=== PATIENT | male | born 1965 | race Caucasian/White ===

== ENCOUNTER 2018-01-28 22:55 | Inpatient (IN) | payer BC, MEDICARE, OTHER ==
[2018-01-29] MEDS ORDERED: LORazepam 2 MG/ML INJ ONE (01:14)
[2018-01-29 01:20] LABS: Glucose,Whole Blood 113 mg/dL (75-99)
[2018-01-29] MEDS ORDERED: levETIRAcetam IV 1,000 MG in SALINE 1 100ML.BAG IVPB STA (01:21)
[2018-01-29 01:25] VITALS: BP 164/102; PULSE 84; RESP 18; TEMP 97.2
[2018-01-29] MEDS ORDERED: PIPERACILLIN-TAZOBACTAM 3.375 GM in DEXTROSE/WATER 1 50ML.BAG IVPB SCH (01:30)
[2018-01-29] MEDS ORDERED: PROPOFOL 100 ML IV ONE ×2 (01:57→03:22)
[2018-01-29] MEDS ORDERED: SUCCINYLCHOLINE CHLORIDE 100 MG/5 ML SYR IV ONE (02:00)
[2018-01-29] MEDS ORDERED: PROPOFOL 10 MG/ML 20 ML VIAL IV ONE (02:00)
[2018-01-29] MEDS ORDERED: LORazepam 2 MG/ML INJ IV PRN (02:39)
--- NOTE | 2018-01-29 02:48 | XR ---
EXAMINATION TYPE: XR chest 1V portable History intubation. Comparison 08/09/2013. Technique single view. FINDINGS: Endotracheal tube appears to be in good position. There is nasogastric tube appears to be well below the diaphragm. There is patchy atelectasis in both mid and lower lung blanco. There is no definite he art failure. Trachea is midline. There is poor inspiration. CONCLUSION: There is new infiltrate and atelectasis at the lung bases compared to old exam. No gross heart failur e. Endotracheal tube appears in good position.
[2018-01-29 02:54] LABS: Basophils # (A) 0.1 k/uL (0-0.2); Basophils % (A) 1 %; Eosinophils # (A) 0.3 k/uL (0-0.7); Eosinophils % (A) 3 %; HCT 33.3 % (39.0-53.0); HGB 11.3 gm/dL (13.0-17.5); Lymphocytes # (A) 2.6 k/uL (1.0-4.8); Lymphocytes % (A) 21 %; MCH 31.1 pg (25.0-35.0); MCV 91.3 fL (80.0-100.0); Mean Platelet Volume 8.4; Monocytes # (A) 0.7 k/uL (0-1.0); Monocytes % (A) 5 %; Neutrophils # (A) 8.5 k/uL (1.3-7.7); Neutrophils % (A) 69 %; Platelet Count 340 k/uL (150-450); RBC 3.65 m/uL (4.30-5.90); RDW 12.7 % (11.5-15.5); WBC 12.4 k/uL (3.8-10.6)
[2018-01-29 02:57] LABS: ABG Base Excess 2.4 mmol/L; ABG HCO3 29 mmol/L (21-25); ABG PCO2 63 mmHg (35-45); ABG PH 7.27 (7.35-7.45); ABG PO2 149 mmHg (83-108); ABG TCO2 31 mmol/L (19-24)
[2018-01-29 03:10] LABS: Calcium 9.2 mg/dL (8.4-10.2); Magnesium 1.6 mg/dL (1.6-2.3); Phosphorus 6.1 mg/dL (2.5-4.5); Potassium 4.9 mmol/L (3.5-5.1); Total Bilirubin 0.3 mg/dL (0.2-1.3); Total Protein 6.8 g/dL (6.3-8.2)
[2018-01-29] MEDS ORDERED: CISATRACURIUM 2 MG/ML 5 ML VIAL IV ONE (03:20)
[2018-01-29] MEDS ORDERED: levETIRAcetam IV 500 MG in SODIUM CHLORIDE 0.9% 100 ML IVPB SCH ×2 (08:00→10:00)
--- NOTE | 2018-02-02 15:44 | P.HPIM ---
History of Present Illness H&P Date: 01/29/18 Chief Complaint: Seizures and visual hallucination This is a 53-year-old gentleman well-known to my practice, Dr. Valentina Sherman. 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 he was recently diagnosed of delusional disorder with schizophrenia diagnosed in the past 3 years, reports requiring prolonged hospitalization aren't [facility]. Recently admitted to [facility], diagnosed to have refractory insomnia, and possible benzodiazepine withdrawal. Patient was not sleeping after he ran out of his clonazepam 3 days prior to admission. Patient has had chronic refractory insomnia, and requires multiple modalities off combined treatments include Seroquel 200 mg twice a day , SSRI, and clonazepam 4 milligram at at bedtime. He is not on any opiates and denies any history off social drug use. He also was being treated with aspiration pneumonia During his last admission at [facility]. He was discharged to home,, we have decreased his clonazepam to 2 mg at bedtime, and added Remeron 30 mg at bedtime and increase his Seroquel to 300 mg at night and 100 mg in the morning. came back in 1 week to the emergency room with another seizure episode and this time he was having auditory and basal hallucinations, and tremors and seizures. He was transferred to [facility] upon my recommendation with the emergency room physician as this could be a florid breakdown of his psychotic episode again, along with neurology consultation and psychiatric evaluation. He was transferred to selective specialty however he had status epilepticus while in the selective unit, and was transferred to ICU for recommended prophylactic intubation prior to transfer to [facility], I have spoken to [facility] neurology ICU unit and has accepted the transfer. , Dr. Sherman, Dr. Briscoe was consulted, patient was given phenobarbital drip, and IV Keppra 500 mg every 8 hours Review of Systems Unable patient was not seen, reviewed from from emergency room physician on [facility] prior to transfer to [facility] Past Medical History Past Medical History: COPD, CVA/TIA, Diabetes Mellitus, Fibromyalgia, GERD/ Reflux, Hyperlipidemia, Hypertension, Liver Disease, Osteoarthritis (OA), Rheumatoid Arthritis (RA), Sleep Apnea/CPAP/BIPAP Additional Past Medical History / Comment(s): Diabetes pedis type II, hypertension, hyperlipidemia, CVA, fibromyalgia, chronic tobacco use and dependence, COPD, chronic pain syndrome, seizure with status epilepticus, osteoporosis with vertebral fracture from T3 to T7 and T11, drug use and dependence. History of Any Multi-Drug Resistant Organisms: None Reported Past Surgical History: Orthopedic Surgery Additional Past Surgical History / Comment(s): rt rotator cuff x 2 Past Anesthesia/Blood Transfusion Reactions: No Reported Reaction Past Psychological History: Depression Smoking Status: Former smoker Past Alcohol Use History: Daily Past Drug Use History: Cocaine, Marijuana - Past Family History Father Family Medical History: CVA/TIA, Diabetes Mellitus, Hypertension Mother Family Medical History: Diabetes Mellitus Brother(s) Family Medical History: No Reported History Sister(s) Family Medical History: No Reported History Medications and Allergies Home Medications Medication Instructions Recorded Confirmed Type Acetaminophen Tab [Tylenol] 650 mg PO Q6H PRN 08/24/15 08/24/15 History Heparin Sodium,Porcine [Heparin] 5,000 unit SQ Q8HR 08/24/15 08/24/15 History Aspirin 81 mg PO DAILY #14 chew 09/02/15 Rx Atorvastatin [Lipitor] 20 mg PO DAILY #14 tab 09/02/15 Rx Escitalopram [Lexapro] 5 mg PO DAILY #14 tab 09/02/15 Rx Famotidine [Pepcid] 20 mg PO BID #28 tab 09/02/15 Rx HYDROcodone/APAP 5-325MG [[place] 1 each PO TID PRN #7 tab 09/02/15 Rx 5-325] LORazepam [Ativan] 0.5 mg PO TID #21 tab 09/02/15 Rx Metoprolol Tartrate [Lopressor] 50 mg PO BID #28 tab 09/02/15 Rx Naproxen Sodium [Anaprox] 550 mg PO BID #28 tab 09/02/15 Rx Paliperidone [Invega] 6 mg PO DAILY #14 tab.er.24 09/02/15 Rx Phenytoin Sodium Extended 100 mg PO BID #28 cap 09/02/15 Rx [Dilantin] QUEtiapine [SEROquel] 400 mg PO DAILY #14 tab 09/02/15 Rx cloNIDine HCL [Catapres] 0.1 mg PO BID #28 tab 09/02/15 Rx hydrOXYzine PAMOATE [Vistaril] 50 mg PO HS #14 cap 09/02/15 Rx levETIRAcetam [Keppra] 1,000 mg PO Q12HR #28 tab 09/02/15 Rx rOPINIRole HCL [Requip] 0.25 mg PO HS #14 tab 09/02/15 Rx Allergies Allergy/AdvReac Type Severity Reaction Status Date / Time No Known Allergies Allergy Verified 08/24/15 14:38 Physical Exam Vitals: Unable. Patient was emergently transferred out to [facility] neurology ICU unit Results CBC & Chem 7: 01/29/18 02:28 01/29/18 02:28 Labs: Laboratory Results WBC 12.4 k/uL (3.8-10.6) H 01/29/18 02:28 RBC 3.65 m/uL (4.30-5.90) L 01/29/18 02:28 Hgb 11.3 gm/dL (13.0-17.5) L 01/29/18 02:28 Hct 33.3 % (39.0-53.0) L 01/29/18 02:28 MCV 91.3 fL (80.0-100.0) 01/29/18 02:28 MCH 31.1 pg (25.0-35.0) 01/29/18 02:28 MCHC 34.0 g/dL (31.0-37.0) 01/29/18 02:28 RDW 12.7 % (11.5-15.5) 01/29/18 02:28 Plt Count 340 k/uL (150-450) 01/29/18 02:28 Neutrophils % 69 % 01/29/18 02:28 Lymphocytes % 21 % 01/29/18 02:28 Monocytes % 5 % 01/29/18 02:28 Eosinophils % 3 % 01/29/18 02:28 Basophils % 1 % 01/29/18 02:28 Neutrophils # 8.5 k/uL (1.3-7.7) H 01/29/18 02:28 Lymphocytes # 2.6 k/uL (1.0-4.8) 01/29/18 02:28 Monocytes # 0.7 k/uL (0-1.0) 01/29/18 02:28 Eosinophils # 0.3 k/uL (0-0.7) 01/29/18 02:28 Basophils # 0.1 k/uL (0-0.2) 01/29/18 02:28 [facility] 01/29/18 02:54 ABG pH 7.27 (7.35-7.45) L 01/29/18 02:54 ABG pCO2 63 mmHg (35-45) H 01/29/18 02:54 ABG pO2 149 mmHg (83-108) H 01/29/18 02:54 ABG HCO3 29 mmol/L (21-25) H 01/29/18 02:54 ABG Total CO2 31 mmol/L (19-24) H 01/29/18 02:54 ABG O2 Saturation 97.0 % (94-97) 01/29/18 02:54 ABG Base Excess 2.4 mmol/L 01/29/18 02:54 Brennan Test Yes 01/29/18 02:54 FiO2 50 % 01/29/18 02:54 Sodium 145 mmol/L (137-145) 01/29/18 02:28 Potassium 4.9 mmol/L (3.5-5.1) 01/29/18 02:28 Chloride 105 mmol/L (98-107) 01/29/18 02:28 Carbon Dioxide 28 mmol/L (22-30) 01/29/18 02:28 Anion Gap 12 mmol/L 01/29/18 02:28 BUN 32 mg/dL (9-20) H 01/29/18 02:28 Creatinine 1.20 mg/dL (0.66-1.25) 01/29/18 02:28 Est GFR (CKD-EPI)AfAm 81 (>60 ml/min/1.73 sqM) 01/29/18 02:28 Est GFR (CKD-EPI)NonAf 70 (>60 ml/min/1.73 sqM) 01/29/18 02:28 Glucose 102 mg/dL (74-99) H 01/29/18 02:28 POC Glucose (mg/dL) 113 mg/dL (75-99) H 01/29/18 01:18 POC Glu Irrigator Valve Pipe ID Gita Marsh 01/29/18 01:18 Calcium 9.2 mg/dL (8.4-10.2) 01/29/18 02:28 Phosphorus 6.1 mg/dL (2.5-4.5) H 01/29/18 02:28 Magnesium 1.6 mg/dL (1.6-2.3) 01/29/18 02:28 Total Bilirubin 0.3 mg/dL (0.2-1.3) 01/29/18 02:28 AST 95 U/L (17-59) H 01/29/18 02:28 ALT 41 U/L (21-72) 01/29/18 02:28 Alkaline Phosphatase 55 U/L (38-126) 01/29/18 02:28 Total Protein 6.8 g/dL (6.3-8.2) 01/29/18 02:28 Albumin 4.0 g/dL (3.5-5.0) 01/29/18 02:28 Levetiracetam 33.3 ug/mL (3.0-60.0) 01/29/18 02:28 Assessment and Plan Plan: 1. Status epilepticus, accompanied by refractory insomnia now with acute psychosis and visual hallucinations, uncontrolled despite Keppra 1000 mg twice a day, Dilantin 100 mg twice a day and Ativan 0.5 mg 3 times a day times a day, patient was started on phenobarbital IV drip as recommended by neurology, and neurology has requested transfer to neuro ICU in [facility], 2. Schizoaffective disorder with acute psychosis, history off bipolar disorder on maintenance Seroquel, 300 mg at bedtime and 100 mg morning , Seroquel and Lexapro 3. Chronic pain, not on opiates, patient was followed for the past few years by pain specialist, however unable to get his visits done secondary to expense 4. Hypertension and hypertensive cardiovascular disease. Continue metoprolol 50 mg orally twice every day. 5. Hyperlipidemia. Continue Lipitor 40 mg orally once every day. 6. History of CVA. Continue aspirin 81 mg once every day, Lipitor 40 mg orally once every day for secondary prevention. 7. Chronic tobacco use and dependence. 8. diabetes mellitus type 2. Stable. 9. GERD. Continue omeprazole 20 mg orally once every day. 10. Osteoporosis with vertebral fracture at T3 through T7 and T11. Patient may need to be started on probably as an outpatient. 11. Reported history of chronic fatigue syndrome. We will check iron studies as an outpatient. 12. Reported history of fibromyalgia. Compliance description drugs needs to be fully addressed, patient's determines compliance with the medications
== END 2018-01-29 05:20 | disposition short-term general hospital (02) | DRG 101 ==
LOC: 4MS4W 01-29 01:09
PROVIDERS: ADMIT Family Medicine; ATTEND Family Medicine
DX: G40.901 Epilepsy, unspecified, not intractable, with status epilepticus (principal); M80.08XA Age-related osteoporosis with current pathological fracture, vertebra(e), initial encounter for fracture; F25.9 Schizoaffective disorder, unspecified; I11.9 Hypertensive heart disease without heart failure; E11.9 Type 2 diabetes mellitus without complications; E78.5 Hyperlipidemia, unspecified; G47.00 Insomnia, unspecified; G47.30 Sleep apnea, unspecified; G89.4 Chronic pain syndrome; J44.9 Chronic obstructive pulmonary disease, unspecified; K21.9 Gastro-esophageal reflux disease without esophagitis; M13.0 Polyarthritis, unspecified; M79.7 Fibromyalgia; R53.82 Chronic fatigue, unspecified; F32.9 Major depressive disorder, single episode, unspecified; F17.200 Nicotine dependence, unspecified, uncomplicated; Z79.82 Long term (current) use of aspirin; Z79.899 Other long term (current) drug therapy; Z86.73 Personal history of transient ischemic attack (TIA), and cerebral infarction without residual deficits; Z82.49 Family history of ischemic heart disease and other diseases of the circulatory system
CPT/HCPCS: 36600; 71045; 80053; 80177; 82805; 83735; 84100; 85025; 94002

== ENCOUNTER 2019-02-17 14:10 | Emergency (ER) | payer MEDICARE ==
[2019-02-17 14:21] VITALS: BP 126/73; PULSE 86; RESP 16; TEMP 97.6
[2019-02-17] MEDS ORDERED: MORPHINE SULFATE 4 MG/ML SYRINGE IM STA (15:12)
[2019-02-17] MEDS ORDERED: KETOROLAC 60 MG/2 ML VIAL IM STA (15:12)
[2019-02-17] MEDS ORDERED: CYCLOBENZAPRINE 10MG STARTER 3 TAB BTL PO STA (15:13)
--- NOTE | 2019-02-17 15:58 | CT ---
EXAMINATION TYPE: CT lumbar spine wo con DATE OF EXAM: 02/17/2019 3:46 PM COMPARISON: None. HISTORY: Low back and leg pain with numbness CT DLP: 801.6 mGycm Automated exposure control for dose reduction was used. Unenhanced CT of the lumbar spine was performed. Bone and soft tissue window settings are submitted as well as coronal and sagittal reconstructions. There are 5 lumbar type vertebra identified. Lumbar spine shows slight grade 1 retrolisthesis of L5 o n S1. There is advanced disc space narrowing and endplate sclerosis at L5-S1 level. Posterior disc he rniation is seen at this level on sagittal images. Remainder of vertebral bodies and disc space heigh ts are maintained. Mild anterior spurring lower lumbar spine is seen. Axial images at the T12-L1 and L1-L2 levels are felt within normal limits. Axial images at L2-L3 level show mild broad disc bulge mildly effacing anterior thecal sac, bilateral neural foramina are patent. Mild facet degenerative changes bilaterally are seen. Axial images at L3-L4 level show mild/moderate broad disc bulge effacing the anterior thecal sac on a xial image 53 and causing mild bilateral anterior inferior neural foraminal narrowing. Axial images at L4-L5 level moderate broad disc bulge effacing anterior thecal sac. There is mild fac et degenerative changes bilaterally. There is mild to moderate bilaterally anterior inferior neural f oraminal narrowing, right greater than left. Axial images at L5-S1 level shows moderate broad-based disc bulge on axial image 74. There is spondyl olisthesis and moderate to severe bilateral neural foraminal narrowing. [id number] facet degene rative changes bilaterally are present. Mild calcified plaque of the aorta extends into branch vessels. Visualized liver is hypodense suggest ing diffuse fatty infiltration. IMPRESSION: Multilevel degenerative changes in lumbar spine most prominent in lower lumbar levels as detailed above.
--- NOTE | 2019-02-17 16:28 | ED ---
Lower Extremity Injury HPI - General Chief Complaint: Extremity Injury, Lower Stated Complaint: Back pain Time Seen by Provider: 02/17/19 14:36 Source: patient, RN notes reviewed, old records reviewed Mode of arrival: ambulatory Limitations: no limitations - History of Present Illness Initial Comments: This is a 54-year-old male who presents emergency Department today with complaints of lower back pain radiating down the leg. Patient reports that symptoms started 2-3 days ago. He said history of lumbar radiculopathy. Reports the pain is more severe today and it has ever been past. He denies any saddle anesthesias. Patient states she's had no fevers or chills chest pain shortness of breath. Patient states that he's had no significant trauma to the back. - Related Data Home Medications Medication Instructions Recorded Confirmed Acetaminophen Tab [Tylenol] 650 mg PO Q6H PRN 08/24/15 08/24/15 Heparin Sodium,Porcine [Heparin] 5,000 unit SQ Q8HR 08/24/15 08/24/15 Previous Rx's Medication Instructions Recorded Aspirin 81 mg PO DAILY #14 chew 09/02/15 Atorvastatin [Lipitor] 20 mg PO DAILY #14 tab 09/02/15 Escitalopram [Lexapro] 5 mg PO DAILY #14 tab 09/02/15 Famotidine [Pepcid] 20 mg PO BID #28 tab 09/02/15 HYDROcodone/APAP 5-325MG [[place] 1 each PO TID PRN #7 tab 09/02/15 5-325] LORazepam [Ativan] 0.5 mg PO TID #21 tab 09/02/15 Metoprolol Tartrate [Lopressor] 50 mg PO BID #28 tab 09/02/15 Naproxen Sodium [Anaprox] 550 mg PO BID #28 tab 09/02/15 Paliperidone [Invega] 6 mg PO DAILY #14 tab.er.24 09/02/15 Phenytoin Sodium Extended 100 mg PO BID #28 cap 09/02/15 [Dilantin] QUEtiapine [SEROquel] 400 mg PO DAILY #14 tab 09/02/15 cloNIDine HCL [Catapres] 0.1 mg PO BID #28 tab 09/02/15 hydrOXYzine PAMOATE [Vistaril] 50 mg PO HS #14 cap 09/02/15 levETIRAcetam [Keppra] 1,000 mg PO Q12HR #28 tab 09/02/15 rOPINIRole HCL [Requip] 0.25 mg PO HS #14 tab 09/02/15 Cyclobenzaprine [Flexeril] 10 mg PO TID #15 tab 02/17/19 Dexamethasone 0.75 mg PO DAILY #12 tab 02/17/19 Ibuprofen 600 mg PO TID #20 tablet 02/17/19 traMADol HCL [Ultram] 50 mg PO Q6HR PRN 3 Days #12 tab 02/17/19 Allergies Allergy/AdvReac Type Severity Reaction Status Date / Time No Known Allergies Allergy Verified 02/17/19 14:21 Review of Systems ROS Statement: Those systems with pertinent positive or pertinent negative responses have been documented in the HPI. ROS Other: All systems not noted in ROS Statement are negative. Past Medical History Past Medical History: COPD, CVA/TIA, Diabetes Mellitus, Fibromyalgia, GERD/Reflux, Hyperlipidemia, Hypertension, Liver Disease, Osteoarthritis (OA), Rheumatoid Arthritis (RA), Sleep Apnea/CPAP/BIPAP Additional Past Medical History / Comment(s): Diabetes pedis type II, hypertension, hyperlipidemia, CVA, fibromyalgia, chronic tobacco use and dependence, COPD, chronic pain syndrome, seizure with status epilepticus, osteoporosis with vertebral fracture from T3 to T7 and T11, drug use and dependence. History of Any Multi-Drug Resistant Organisms: None Reported Past Surgical History: Orthopedic Surgery Additional Past Surgical History / Comment(s): rt rotator cuff x 2 Past Anesthesia/Blood Transfusion Reactions: No Reported Reaction Past Psychological History: Depression Smoking Status: Former smoker Past Alcohol Use History: Daily Past Drug Use History: Cocaine, Marijuana - Past Family History Father Family Medical History: CVA/TIA, Diabetes Mellitus, Hypertension Mother Family Medical History: Diabetes Mellitus Brother(s) Family Medical History: No Reported History Sister(s) Family Medical History: No Reported History General Exam - General Exam Comments Initial Comments: Patient is a 54-year-old male. Alert and oriented. No distress. Limitations: no limitations General appearance: alert, in no apparent distress Head exam: Present: atraumatic, normocephalic, normal inspection Eye exam: Present: normal appearance, PERRL, EOMI. Absent: scleral icterus, conjunctival injection, periorbital swelling ENT exam: Present: normal exam, mucous membranes moist Neck exam: Present: normal inspection. Absent: tenderness, meningismus, lymphadenopathy Respiratory exam: Present: normal lung sounds bilaterally Cardiovascular Exam: Present: regular rate, normal rhythm, normal heart sounds. Absent: systolic murmur, diastolic murmur, rubs, gallop, clicks GI/Abdominal exam: Present: soft, normal bowel sounds. Absent: distended, tenderness, guarding, rebound, rigid Extremities exam: Present: normal inspection, tenderness (Lumbar spinal tenderness.) Back exam: Present: normal inspection Neurological exam: Present: alert Psychiatric exam: Present: normal affect, normal mood Skin exam: Present: warm Course Vital Signs 02/17/19 14:15 Temperature 97.6 F Pulse Rate 86 Respiratory 16 Rate Blood Pressure 126/73 O2 Sat by Pulse 98 Oximetry Medical Decision Making - Medical Decision Making Patient is a 54-year-old male presents to the lower back pain radiates down right leg. Patient has positive straight leg test. Lumbar spinal tenderness. Patient was in significant pain. Given IM pain injections. He reports some relief. Patient CT lumbar spine shows degenerative disc disease. Patient's this. We'll discharge the Patient with anti-inflammatory medicine and steroids muscle relaxers and short course of pain medicine. Opiate started talking from completed. Discussed strict return parameters. - Radiology Data Radiology results: report reviewed CT shows multilevel degenerative disc disease lumbar spinous prominent lumbar lower lumbar levels. Disposition Clinical Impression: DDD (degenerative disc disease), lumbar, Sciatic leg pain Disposition: HOME SELF-CARE Condition: Good Instructions (If sedation given, give patient instructions): Lumbar Spinal Stenosis (ED), Chronic Back Pain (ED) Additional Instructions: Patient has SEEMED to Motrin Tylenol for pains. Take the medication as prescribed. Return to emergency department if any alarming signs or symptoms occur. Prescriptions: Dexamethasone 0.75 mg PO DAILY #12 tab Cyclobenzaprine [Flexeril] 10 mg PO TID #15 tab Ibuprofen 600 mg PO TID #20 tablet traMADol HCL [Ultram] 50 mg PO Q6HR PRN 3 Days #12 tab PRN Reason: Pain Is patient prescribed a controlled substance at d/c from ED?: Yes If prescribed controlled substance>3 days was MAPS reviewed?: Prescribed <3 Days If opioid is for acute pain is fill amount 7 days or less?: Yes If Rx opioid, was Start Talking consent form obtained?: Yes Referrals: Fay Deluca MD [Primary Care Provider] - 1-2 days Time of Disposition: 16:25
== END 2019-02-17 16:37 | disposition home or self-care (01) ==
LOC: EC 14:10
DX: M51.16 Intervertebral disc disorders with radiculopathy, lumbar region (principal); G47.30 Sleep apnea, unspecified; Z99.89 Dependence on other enabling machines and devices; Z86.73 Personal history of transient ischemic attack (TIA), and cerebral infarction without residual deficits; Z87.891 Personal history of nicotine dependence; Z87.39 Personal history of other diseases of the musculoskeletal system and connective tissue; Z79.01 Long term (current) use of anticoagulants
CPT/HCPCS: 72131; 99284; 96372 ×2; J2270; J1885

== ENCOUNTER → 2019-08-29 | Outpatient (CLI) | payer MEDICARE ==
--- NOTE | 2019-08-29 09:25 | US ---
EXAMINATION TYPE: US bladder DATE OF EXAM: 08/29/2019 COMPARISON: None CLINICAL HISTORY: N28.9 Acute Renal insufficiency. Postvoid per order. Patient states he has a hard time voiding and feels like he doesn't empty completely. EXAM MEASUREMENTS: Color Doppler performed to assess ureteral jets. Bilateral Jets seen Patient attempted to void and was unable to. Postvoid measurement unable to be taken. Urinary bladd er measurements prior to and after attempted voiding are 6.3 x 7.0 x 5.3 cm. Urinary bladder wall thi ckness is within normal limits measured at 2 mm. No filling defect is seen. IMPRESSION: Urinary bladder is anechoic without filling defect seen. The patient was unable to void. Pre and post void measurements are 6.3 x 7.0 x 5.3 cm. Neurogenic bladder could be considered given the bladder is relatively distended and the patient could not void.
== END ==
LOC: RADUSWWP 07:31
PROVIDERS: ATTEND Family Medicine
DX: N32.89 Other specified disorders of bladder (principal)
CPT/HCPCS: 76857

== ENCOUNTER → 2019-11-20 | Outpatient (CLI) | payer MEDICARE ==
--- NOTE | 2019-11-20 15:34 | US ---
EXAMINATION TYPE: US bladder DATE OF EXAM: 11/20/2019 COMPARISON: NONE CLINICAL HISTORY: N31.9 Neuromuscular dysfunction of bladder. Neuromuscular dysfunction of bladder. EXAM MEASUREMENTS: Pre Void Residual Volume: 97.36 mL Color Doppler performed to assess ureteral jets. Bilateral Jets seen: Yes Normal Post Void Residual (less than 50ml): 31.67 ml Urinary bladder and maintained anechoic and unremarkable. IMPRESSION: Post void residual is within normal limits on today's examination. Urinary bladder is an echoic and unremarkable.
== END | disposition home or self-care (01) ==
LOC: RADUSWWP 13:16
PROVIDERS: ATTEND Family Medicine
DX: N31.9 Neuromuscular dysfunction of bladder, unspecified (principal)
CPT/HCPCS: 76857

== ENCOUNTER → 2020-05-14 | Outpatient (CLI) | payer MEDICARE ==
[2020-05-14 11:53] LABS: Basophils # (A) 0.1 k/uL (0-0.2); Basophils % (A) 1 %; Eosinophils # (A) 0.3 k/uL (0-0.7); Eosinophils % (A) 4 %; HCT 40.2 % (39.0-53.0); HGB 13.4 gm/dL (13.0-17.5); Lymphocytes # (A) 1.9 k/uL (1.0-4.8); Lymphocytes % (A) 25 %; MCH 31.7 pg (25.0-35.0); MCHC 33.3 g/dL (31.0-37.0); MCV 95.3 fL (80.0-100.0); Monocytes # (A) 0.4 k/uL (0-1.0); Monocytes % (A) 5 %; Neutrophils # (A) 4.8 k/uL (1.3-7.7); Neutrophils % (A) 63 %; Platelet Count 217 k/uL (150-450); RBC 4.22 m/uL (4.30-5.90); RDW 13.1 % (11.5-15.5); WBC 7.7 k/uL (3.8-10.6)
[2020-05-14 11:58] LABS: INR 1.1 (<1.2); Partial Thromboplastin Time 23.6 sec (22.0-30.0); Prothrombin Time 10.8 sec (9.0-12.0)
[2020-05-14 12:00] LABS: ALT 31 U/L (4-49); AST 34 U/L (17-59); African American GFR (CKD) 77 (>60 ml/min/1.73 sqM); Albumin 4.9 g/dL (3.5-5.0); Alkaline Phosphatase 46 U/L (38-126); Anion Gap 7 mmol/L; Blood Urea Nitrogen 34 mg/dL (9-20); Calcium 9.5 mg/dL (8.4-10.2); Carbon Dioxide 25 mmol/L (22-30); Chloride 108 mmol/L (98-107); Creatine Kinase 182 U/L (55-170); Glucose 95 mg/dL (74-99); LDH 551 U/L (313-618); Non-African American GFR(CKD) 67 (>60 ml/min/1.73 sqM); Phenytoin (Dilantin) <3.0 ug/mL; Potassium 5.3 mmol/L (3.5-5.1); Sodium 140 mmol/L (137-145); Total Bilirubin 0.3 mg/dL (0.2-1.3); Total Protein 7.9 g/dL (6.3-8.2)
--- NOTE | 2020-05-14 12:56 | CT ---
EXAMINATION TYPE: CT chest w con DATE OF EXAM: 05/14/2020 COMPARISON: NONE HISTORY: Solitary pulmonary nodule CT DLP: 531 mGycm. Automated Exposure Control for Dose Reduction was Utilized. TECHNIQUE: CT scan of the thorax is performed following with IV Contrast, patient injected with 100 mL of Isovue 300. FINDINGS: LUNGS: The lungs are grossly clear, there is no concerning greater than 4 mm parenchymal mass or nodu le identified. There is no pleural effusion or pneumothorax seen. The tracheobronchial tree is pat ent. MEDIASTINUM: There are no greater than 1 cm hilar or mediastinal lymph nodes. No cardiomegaly or pe ricardial effusion is seen. OTHER: Prominent bilateral gynecomastia is noted. Liver is diffusely low dense suggesting fatty infil tration. Slight scoliotic curvature with mild multilevel spurring in the spine. IMPRESSION: No suspicious pulmonary nodules or masses.
[2020-05-14 20:32] LABS: Hemoglobin A1C 6.4 % (4.0-6.0)
[2020-05-14 21:50] LABS: % Iron Saturation 13.79 (15.00-50.00); Iron 68 ug/dL (65-175); Total Iron Binding Capacity 493 ug/dL (228-460)
== END | disposition home or self-care (01) ==
LOC: RADCTMAIN 10:43
PROVIDERS: ATTEND Family Medicine
DX: R91.1 Solitary pulmonary nodule (principal); J44.9 Chronic obstructive pulmonary disease, unspecified; N18.3 Chronic kidney disease, stage 3 (moderate); G25.81 Restless legs syndrome; M48.061 Spinal stenosis, lumbar region without neurogenic claudication; E11.9 Type 2 diabetes mellitus without complications; R56.9 Unspecified convulsions
CPT/HCPCS: 83880; 80053; 80177; 82607; 82550; 80185; 83540; 83550; 83615; 84443; 85025; 85610; 85730; 83036; 71260; 36415; Q9967

== ENCOUNTER 2020-06-10 15:58 | Observation (INO) | payer MEDICARE ==
[2020-06-10] MEDS ORDERED: DIBUCAINE 1% TOPICAL PRN (19:32)
[2020-06-10] MEDS ORDERED: IBUPROFEN 800 MG TAB PO PRN (19:32)
[2020-06-10] MEDS ORDERED: methocarbamoL 750 MG TAB PO PRN (19:32)
[2020-06-10] MEDS: levETIRAcetam 500 MG TAB PO SCH (20:49)
[2020-06-10] MEDS: rOPINIRole HCL 4 MG TABLET PO SCH (20:50)
[2020-06-10] MEDS: clonazePAM 1 MG TAB PO SCH (20:50)
[2020-06-10 20:51] LABS: Glucose,Whole Blood 131 mg/dL (75-99)
[2020-06-10] MEDS: busPIRone HCl 5 MG TAB PO SCH (20:51)
[2020-06-10] MEDS: PHENYTOIN SODIUM EXTENDED 100 MG CAP PO SCH (20:51)
[2020-06-10] MEDS: ETODOLAC 400 MG TAB PO SCH (20:52)
[2020-06-10] MEDS: QUEtiapine 100 MG TAB PO SCH (20:54)
[2020-06-10] MEDS: AMITRIPTYLINE HCL 50 MG TAB PO SCH (20:55)
[2020-06-10] MEDS: PANTOPRAZOLE 40 MG TABLET PO SCH (20:55)
[2020-06-10] MEDS: INSULIN ASPART (NovoLOG) 100 UNIT/ML VIAL SQ SCH (20:55)
[2020-06-10] MEDS: PREGABALIN 75 MG CAP PO SCH (20:55)
[2020-06-10] MEDS: MIRTAZAPINE 15 MG TAB PO SCH (20:55)
[2020-06-10] MEDS: oxyCODONE-APAP 7.5-325MG 1 EACH TAB PO PRN (20:56)
[2020-06-10] MEDS: miSOPROStoL 200 MCG TAB PO SCH (20:58)
--- NOTE | 2020-06-10 22:58 | P.HPIM ---
History of Present Illness H&P Date: 06/10/20 Chief Complaint: 6 severe change in mental status, status seizure, fall at home, recent hist 54-year-old male one of Dr. Guy patient who was hospitalized at [facility] yesterday for significant altered mental status according to his significant other he fell at home when he was cleaning the floor fell down some stairs without having any major injury but he had a problem ambulating or walking he had recent history of lower back surgery on May 28 at [facility] for spinal stenosis and patient is known to have history of seizure, chronic pain syndrome along with previous history of stroke, patient seen Dr. Chaudhari neurology for pain management also has been managed with multi-medication for seizure activity. According to his significant other says he was released from the hospital after his surgery at [facility] has not back right but become a lot worse after his fall yesterday. Patient was seen and evaluated at [facility] multi-x-ray including CT of the head CD of the cervical spine and lumbar spine showed his surgical site with no injury chest x-ray was clear EKG showed no major abnormality his creatinine was mildly elevated and patient was mildly dehydrated also his Dilantin level was 3.4 subtherapeutic despite taking his medication with Dilantin and Keppra and Vimpat and patient apparently had seizure despite the treatment medication but mostly his level was down. Patient started having catatonia and he quit talking for pedis time like he is going into atypical seizure and then comes back and start talking for. This time to quit again to do the same his answers are quite bit abrupt and still have slight problem with aphasia not been able to express himself and full. After he was evaluated and admitted for one day he was transferred to [facility] for an EEG, neuro service and psych evaluation as well. Review of Systems CONSTITUTIONAL: Well-developed no acute respiratory distress. EYES: No icterus sclerae, no conjunctivitis. EARS, NOSE, MOUTH, THROAT, and FACE: No sore throat, lymphadenopathy, carotid bruits or deformity. RESPIRATORY: No SOB cough or wheezes. CARDIOVASCULAR: No CP, Palpitation, PND, Orthopnea, or angina. GASTROINTESTINAL: No Abd pain, Nausea or vomiting, no Diarrhea or constipation, No GI Bleed, mild abdominal distention GENITOURINARY: Negative for Hematuria or UTI, no kidney stones. Mild incontinence. INTEGUMENT/BREAST: Negative for any muscular injury with mild osteoarthritis.. HEMATOLOGIC/LYMPHATIC: Negative for bleed or purpura. MUSCULOSKELTAL: Lower back pain post back surgery. NEURLOGICAL: Positive change mental status with status seizure and recurrent seizure mostly atypical along with significant bizarre behavior. BEHAVIORAL/PSYCH: Worsening behavior along with diffusion and significant catatonia at the time. ENDOCRINE: Negative. Social history: Patient does not smoke narcotic abuse no drug use is lives with his with no children. Family history: His father in his 50s from brain aneurysm he was diabetic and has history of stroke, mother is living in her 80s with history of diabetes. Patient had for brother one of them committed suicide one sister with no major medical problem. Patient does not have any children. Past Medical History Past Medical History: COPD, CVA/TIA, Diabetes Mellitus, Fibromyalgia, GERD/Reflux, Hypertension, Osteoarthritis (OA), Rheumatoid Arthritis (RA), Sleep Apnea/CPAP/BIPAP Additional Past Medical History / Comment(s): Diabetes pedis type II, hypertension, hyperlipidemia, CVA, fibromyalgia, chronic tobacco use (pt states he is no longer a smaoke) and dependence, COPD, chronic pain syndrome, seizure with status epilepticus, osteoporosis with vertebral fracture from T3 to T7 and T11, drug use and dependence. History of Any Multi-Drug Resistant Organisms: None Reported Past Surgical History: Orthopedic Surgery Additional Past Surgical History / Comment(s): rt rotator cuff x 2 Past Anesthesia/Blood Transfusion Reactions: No Reported Reaction Past Psychological History: Depression Smoking Status: Former smoker Past Alcohol Use History: Daily Past Drug Use History: Cocaine, Marijuana Additional Drug Use History / Comment(s): Pt denies any drug use - Past Family History Father Family Medical History: CVA/TIA, Diabetes Mellitus, Hypertension Mother Family Medical History: Diabetes Mellitus Brother(s) Family Medical History: No Reported History Sister(s) Family Medical History: No Reported History Medications and Allergies Home Medications Medication Instructions Recorded Confirmed Type Escitalopram [Lexapro] 5 mg PO DAILY #14 tab 09/02/15 06/10/20 Rx Phenytoin Sodium Extended 100 mg PO BID #28 cap 09/02/15 06/10/20 Rx [Dilantin] Amitriptyline HCl [Elavil] 150 mg PO HS 06/10/20 06/10/20 History Atorvastatin [Lipitor] 40 mg PO DAILY 06/10/20 06/10/20 History DULoxetine HCL [Cymbalta] 30 mg PO DAILY 06/10/20 06/10/20 History Dibucaine 1% Ointment 1 applic TOPICAL Q2H PRN 06/10/20 06/10/20 History Diclofenac Sodium/Misoprostol 1 tab PO BID 06/10/20 06/10/20 History [Diclofenac-Misoprost 75-200 Tb] Fenofibrate Nanocrystallized 145 mg PO DAILY 06/10/20 06/10/20 History [Fenofibrate] Ibuprofen [Motrin Ib] 800 mg PO TID PRN 06/10/20 06/10/20 History Lacosamide [Vimpat] 300 mg PO BID 06/10/20 06/10/20 History Methocarbamol [Robaxin] 750 mg PO TID PRN 06/10/20 06/10/20 History Mirtazapine 15 mg PO HS 06/10/20 06/10/20 History Omeprazole 20 mg PO BID 06/10/20 06/10/20 History Pregabalin [Lyrica] 75 mg PO TID 06/10/20 06/10/20 History QUEtiapine [SEROquel] 100 mg PO BID 06/10/20 06/10/20 History Tamsulosin [Flomax] 0.4 mg PO DAILY 06/10/20 06/10/20 History Tolterodine ER [Detrol LA] 2 mg PO DAILY 06/10/20 06/10/20 History busPIRone HCL 15 mg PO TID 06/10/20 06/10/20 History clonazePAM 2 mg PO HS 06/10/20 06/10/20 History levETIRAcetam [Keppra] 2,000 mg PO BID 06/10/20 06/10/20 History oxyCODONE-APAP 7.5-325MG [Percocet 1 tab PO BID PRN 06/10/20 06/10/20 History 7.5-325 mg] rOPINIRole HCL [Requip] 4 mg PO DAILY 06/10/20 06/10/20 History rOPINIRole HCL [Requip] 8 mg PO HS 06/10/20 06/10/20 History Allergies Allergy/AdvReac Type Severity Reaction Status Date / Time No Known Allergies Allergy Verified 06/10/20 18:13 Physical Exam Vitals: Vital Signs Temp Pulse Resp BP Pulse Ox 06/10/20 20:42 97.7 F 86 18 134/78 96 06/10/20 17:18 97.8 F 73 16 124/79 96 Intake and Output 06/10/20 06/10/20 06/10/20 06:59 14:59 22:59 Other: Weight 75.296 kg General Appearance: Alert, cooperative, no distress, appears stated age. Neck HEENT: Supple, no lymphadenopathy, no thyroid enlargement, no carotid bruits. Lungs: Clear to auscultation without crackles or wheezes no rhonchi, no deformity. Chest Wall: Chest wall normal expansion with deep inspiration no tenderness and no deformity was found on exam, no costochondral pain or discomfort. Heart: Regular rate and rhythm, S1, S2 normal, no murmur, rub or gallop. Back: Scar tissue in the lower thoracic and upper lumbar area with no abnormality no major infection trauma no open area. Abdomen: Soft, non-tender, bowel sounds active all four quadrants, no masses, no organomegaly. Extremities: Extremities normal, atraumatic, no cyanosis or edema. Pulses: 2+ and symmetric. Skin: Skin color, texture, tugor normal, no rashes or lesions. Neurologic: Alert with mild confusion currently nerves II through XII intact positive slight weakness in the lower extremity but able to move all his 4 extremity the time not been able to do balancing gait exam. During his exam and interview patient become quite catatonic initially had almost speed answer very fast for the first 2-3 minutes and then quit talking completely despite making gesture that he understood the question just could not answer them time. Results Labs: Abnormal Lab Results - Last 24 Hours (Table) 06/10/20 Range/Units 20:49 POC Glucose (mg/dL) 131 H (75-99) mg/dL Thrombosis Risk Factor Assmnt - DVT/VTE Prophylaxis DVT/VTE Prophylaxis: Pharmacologic Prophylaxis ordered, Mechanical Prophylaxis ordered - Choose All That Apply Any of the Below Risk Factors Present?: Yes Each Factor Represents 1 point: Age 41-60 years, Obesity (BMI >25) Other Risk Factors: No Other congenital or acquired thrombophilia - If yes, enter type in comment: No Thrombosis Risk Factor Assessment Total Risk Factor Score: 2 Thrombosis Risk Factor Assessment Level: Low Risk Assessment and Plan Assessment: 1 change mental status: Most likely combination of CVA/TIA, status seizure and possible reaction to medication and side effect. 2 status seizure: Patient is taking Keppra and Dilantin and Vimpat symptoms are not control need to see neurology EEG was order. Brain CAT scan did not show any abnormality. 3 severe depression and psychosis with catatonia: We'll consult psychiatry patient has been on multiple medications including BuSpar, Elavil, Remeron, clonidine and Ativan some of from his medication were changed at the time will continue to restrict some of the benzodiazepine to make sure is not a side effect medication. 4 post recent lower back surgery done at [facility]. 5 post fall with no injury at this point continue to watch patient is balance and gait most likely affected by his medication. 6 acute kidney injury with stage III chronic kidney disease: Continue hydration repeat BUN/creatinine 24 hours. 7 history of hyperlipidemia: Remain on Lipitor and TriCor. 8 BPH: With no sign of urinary retention remain on Flomax 0.4 mg a day. 9 status of Williamson virus COVID 19: Was negative. 10 GI prophylaxis: Patient be on pantoprazole. 11 DVT prophylaxis: Patient will be on heparin subcutaneous. CODE STATUS: DO NOT RESUSCITATE. Family conference a meeting left message for the family give any question or concern to call my office arrange from eating and amputation of to any Corey Dick dictation from 06/10/2020 thank you
[2020-06-10] MEDS: LACOSAMIDE 150 MG TABLET PO SCH (23:56)
[2020-06-11 06:50] LABS: Basophils % (A) 0 %; Eosinophils # (A) 0.2 k/uL (0-0.7); Eosinophils % (A) 3 %; HCT 29.9 % (39.0-53.0); Lymphocytes # (A) 1.9 k/uL (1.0-4.8); Lymphocytes % (A) 27 %; MCH 31.7 pg (25.0-35.0); MCHC 33.1 g/dL (31.0-37.0); MCV 95.9 fL (80.0-100.0); Mean Platelet Volume 9.8; Monocytes # (A) 0.4 k/uL (0-1.0); Monocytes % (A) 5 %; Neutrophils # (A) 4.3 k/uL (1.3-7.7); Neutrophils % (A) 62 %; RBC 3.12 m/uL (4.30-5.90); RDW 13.2 % (11.5-15.5)
[2020-06-11 06:58] LABS: HGB 9.9 gm/dL (13.0-17.5); Platelet Count 465 k/uL (150-450)
[2020-06-11 07:00] LABS: ALT 20 U/L (4-49); AST 31 U/L (17-59); African American GFR (CKD) >90 (>60 ml/min/1.73 sqM); Albumin 3.5 g/dL (3.5-5.0); Alkaline Phosphatase 47 U/L (38-126); Anion Gap 5 mmol/L; Blood Urea Nitrogen 26 mg/dL (9-20); Calcium 8.9 mg/dL (8.4-10.2); Carbon Dioxide 27 mmol/L (22-30); Chloride 109 mmol/L (98-107); Glucose 78 mg/dL (74-99); Non-African American GFR(CKD) 86 (>60 ml/min/1.73 sqM); Potassium 4.7 mmol/L (3.5-5.1); Sodium 141 mmol/L (137-145); Total Bilirubin 0.4 mg/dL (0.2-1.3); Total Protein 5.9 g/dL (6.3-8.2)
[2020-06-11 07:08] LABS: Glucose,Whole Blood 83 mg/dL (75-99)
[2020-06-11] MEDS: INSULIN ASPART (NovoLOG) 100 UNIT/ML VIAL SQ SCH ×4 (08:46→20:02)
--- NOTE | 2020-06-11 11:19 | EEG ---
ELECTROENCEPHALOGRAM REPORT DATE OF SERVICE: 06/11/2020 PREAMBLE: This is a 55-year-old male with syncopal spell. This study is performed to evaluate for any epileptiform activity. EEG FINDINGS: This is a 21 channel routine EEG recording in a patient utilizing 10/20 international system with referential and bipolar montages. The background consists of well- developed, but not very well regulated, mixed frequencies of theta, and with some 3 hertz moderate amplitude generalized delta activity. Background does not seem to be reactive to eye opening and closing. Photic driving response was not seen. The patient was noted to be drowsy during the later part of the study, but deeper stages of sleep were not seen. No focal or generalized epileptiform activity was seen. IMPRESSION: This is an abnormal EEG due to background slowing of moderate degree. This is suggestive of generalized cerebral dysfunction as can be seen with toxic metabolic encephalopathy or due to diffuse structural brain abnormality. No epileptiform activity was seen. MMODL / IJN: [id number] /
[2020-06-11] MEDS: ATORVASTATIN 40 MG TAB PO SCH (11:39)
[2020-06-11] MEDS: busPIRone HCl 5 MG TAB PO SCH ×3 (11:39→19:58)
[2020-06-11] MEDS: TAMSULOSIN 0.4 MG CAP.ER.24H PO SCH (11:40)
[2020-06-11] MEDS: levETIRAcetam 500 MG TAB PO SCH ×2 (11:40→19:55)
[2020-06-11] MEDS: PREGABALIN 75 MG CAP PO SCH ×3 (11:40→19:52)
[2020-06-11] MEDS: DULoxetine HCL 30 MG CAPSULE.DR PO SCH (11:40)
[2020-06-11] MEDS: PANTOPRAZOLE 40 MG TABLET PO SCH ×2 (11:40→19:58)
[2020-06-11] MEDS: ETODOLAC 400 MG TAB PO SCH ×2 (11:41→19:59)
[2020-06-11] MEDS: FENOFIBRATE 160 MG TAB PO SCH (11:41)
[2020-06-11] MEDS: OXYBUTYNIN XL 5 MG TAB.ER.24 PO SCH (11:42)
[2020-06-11] MEDS: miSOPROStoL 200 MCG TAB PO SCH ×2 (11:43→20:00)
[2020-06-11] MEDS: QUEtiapine 100 MG TAB PO SCH ×2 (11:43→19:56)
[2020-06-11] MEDS: PHENYTOIN SODIUM EXTENDED 100 MG CAP PO SCH ×2 (11:45→19:59)
[2020-06-11] MEDS: rOPINIRole HCL 4 MG TABLET PO SCH ×2 (11:45→19:51)
[2020-06-11] MEDS: ESCITALOPRAM 5 MG TAB PO SCH (11:47)
[2020-06-11 11:49] LABS: Glucose,Whole Blood 96 mg/dL (75-99)
[2020-06-11 12:27] VITALS: RESP 16
--- NOTE | 2020-06-11 14:36 | P.CN ---
Psychiatric Consult - . Consult date: 06/11/20 Consult:: IDENTIFYING DATA: He is a 55-year-old male who has history of CVA and seizure disorder. He was transferred from [facility] for evaluation of altered mental status. The hospitalist consult to psychiatry for evaluation of the altered mental status. HISTORY OF PRESENT ILLNESS: I reviewed the medical record, interviewed the patient and spoke with his fiance. He was unable to explain the circumstances that brought him to the hospital. His speech was digressive and overly circumstantial. His fiance remarked that he has not done well since she had back surgery on May 28. She stated that he appeared to have seizure yesterday where he was shaking and unresponsive. He gave a contradictory history. Initially he denied that he had a history of seizures but only recently had a seizure since discharge from 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 He admits to feeling confused and relies on his fiance for the management household, bills, his medical appointments and his medications. I was surprised by his psychotropic medication regimen that included four antidepressants (Elavil, Cymbalta, Lexapro and mirtazapine) as well as clonazepam, BuSpar and Seroquel. He did not know the names of the medication or the purpose of his medications. His fiance was likewise unfamiliar with the medications and explained that they go to the primary who refills the medications. She assures that he takes the medications as prescribed. She denied feeling persistently depressed or having thoughts of or suicide. He denied persistent anxiety that he was unable to control. He denied auditory, visual or olfactory hallucinations, ideas reference, thought insertion, thought broadcasting or thought control. He denied use of alcohol or drugs. His UDS was positive only for barbiturates and tricyclic antidepressants. His serum alcohol level was negative. PAST PSYCHIATRIC HISTORY: He had one admission to our psychiatric unit in August 2015. He was discharged with diagnoses of schizoaffective disorder bipolar type, seizure disorder, closed head injury, cognitive disorder and organic personality syndrome. His psychotropic medications at discharge were Lexapro 5 mg daily, Invega 6 mg daily, Seroquel 400 mg at bedtime. We referred him to [facility] for aftercare services. PAST MEDICAL HISTORY: He has a complicated medical history with multiple medical problems. His fiance reported that he has had seizures since he had a CVA about 6 years ago. ALLERGIES: NO KNOWN DRUG ALLERGIES SUBSTANCE USE HISTORY: He denied use of alcohol or drugs. FAMILY PSYCHIATRIC/SUBSTANCE USE HISTORY: Unknown SOCIAL HISTORY: He is unemployed and receives disability. He lives with his fiance. He did not graduate from high school. MENTAL STATUS EXAM: He presented as a restless 55-year-old male who was sitting comfortably in bed. He made eye contact and appeared to attend to the interview. He had no prominent physical abnormalities. He is anxious facial expression. He was alert to person, place and time. He was restless but showed no abnormal involuntary movements. His speech was spontaneous and sometimes irrelevant but with normal volume. His affect was labile but not overly intense or and appropriate. She denies suicidal ideation or wishes. He denied homicidal ideation. He denied such depressive cognitions as hopelessness, helplessness or worthlessness. No express ideas reference, paranoid ideation or delusions. His thinking was concrete and his associations at times not appear coherent or goal directed. He denied hallucinations and did not appear to be responding to internal stimuli. We completed the Mini-Mental State Examination. His total score was 27/30. He showed no impairment in orientation, registration or language. He had difficulty and made errors with task involving attention, concentration and delayed recall. IMPRESSIONS: He is a 55-year-old male who has a complicated medical history including a CVA and a seizure disorder. [facility] transfer from [facility] with acute change in mental status. He was just unable to provide a court hearing history but talked about experiencing seizure prior to his admission. He has a history of seizure disorder and is prescribed both Vimpat, Keppra and Dilantin for treatment of chronic seizures. He is also prescribed multiple psychotropic medications including 4 different antidepressants. I suspect that the acute change in mental status this postictal phenomena. I cannot exclude the possibility that his psychotropic medications contributed either to a seizure by lowering thresh old or to his confusion. There is no indication for transfer to the psychiatric unit. DIAGNOSIS: Delirium due to medical conditions, seizure disorder, history of a mood disorder RECOMMENDATION: Discontinue Remeron, Cymbalta and Lexapro. Continue Elavil 150 mg at bedtime. Continue BuSpar 50 mg 3 times a day, Seroquel 100 mg twice a day and Klonopin 2 mg at bedtime. He would benefit from outpatient evaluation of his psychotropic medication. Consult a social media sr strategy manager for referral to community mental health. Thank you for this consult. Psychiatry will sign off the case. 06/11/20 14:12
--- NOTE | 2020-06-11 14:52 | P.PN ---
Subjective Progress Note Date: 06/11/20 54-year-old male one of Dr. Guy patient who was hospitalized at [facility] yesterday for significant altered mental status according to his significant other he fell at home when he was cleaning the floor fell down some stairs without having any major injury but he had a problem ambulating or walking he had recent history of lower back surgery on May 28 at [facility] for spinal stenosis and patient is known to have history of seizure, chronic pain syndrome along with previous history of stroke, patient seen Dr. Chaudhari neurology for pain management also has been managed with multi-medication for seizure activity. According to his significant other says he was released from the hospital after his surgery at [facility] has not back right but become a lot worse after his fall yesterday. Patient was seen and evaluated at [facility] multi-x-ray including CT of the head CD of the cervical spine and lumbar spine showed his surgical site with no injury chest x-ray was clear EKG showed no major abnormality his creatinine was mildly elevated and patient was mildly dehydrated also his Dilantin level was 3.4 subtherapeutic despite taking his medication with Dilantin and Keppra and Vimpat and patient apparently had seizure despite the treatment medication but mostly his level was down. Patient started having catatonia and he quit talking for pedis time like he is going i nto atypical seizure and then comes back and start talking for. This time to quit again to do the same his answers are quite bit abrupt and still have slight problem with aphasia not been able to express himself and full. After he was evaluated and admitted for one day he was transferred to [facility] for an EEG, neuro service and psych evaluation as well. 06/11: The patient is seen in follow-up today. Neurology and psychiatry evaluations today. Anticipate he will probably be ready for discharge tomorrow. Patient states that he has had ongoing sleep deprivation and only slept 2 hours last night. He isn't seizure precautions. EEG is abnormal due to background slowing suggestive generalized cerebral dysfunction seen in toxic metabolic encephalopathy or due to diffuse structural brain abnormality. Review of systems CONSTITUTIONAL: Well-developed no acute respiratory distress. EYES: No icterus sclerae, no conjunctivitis. EARS, NOSE, MOUTH, THROAT, and FACE: No sore throat, lymphadenopathy, carotid bruits or deformity. RESPIRATORY: No SOB cough or wheezes. CARDIOVASCULAR: No CP, Palpitation, PND, Orthopnea, or angina. GASTROINTESTINAL: No Abd pain, Nausea or vomiting, no Diarrhea or constipation, No GI Bleed, mild abdominal distention GENITOURINARY: Negative for Hematuria or UTI, no kidney stones. Mild incontinence. INTEGUMENT/BREAST: Negative for any muscular injury with mild osteoarthritis.. HEMATOLOGIC/LYMPHATIC: Negative for bleed or purpura. MUSCULOSKELTAL: Lower back pain post back surgery. NEURLOGICAL: Denies change mental status, denies seizure BEHAVIORAL/PSYCH: Worsening behavior along with diffusion and significant catatonia at the time. ENDOCRINE: Negative. Physical examination General Appearance: Alert, cooperative, no distress, appears stated age. Neck HEENT: Supple, no lymphadenopathy, no thyroid enlargement, no carotid bruits. Lungs: Clear to auscultation without crackles or wheezes no rhonchi, no d eformity. Chest Wall: Chest wall normal expansion with deep inspiration no tenderness and no deformity was found on exam, no costochondral pain or discomfort. Heart: Regular rate and rhythm, S1, S2 normal, no murmur, rub or gallop. Back: Scar tissue in the lower thoracic and upper lumbar area with no abnormality no major infection trauma no open area. Abdomen: Soft, non-tender, bowel sounds active all four quadrants, no masses, no organomegaly. Extremities: Extremities normal, atraumatic, no cyanosis or edema. Pulses: 2+ and symmetric. Skin: Skin color, texture, tugor normal, no rashes or lesions. Neurologic: Alert and oriented 3. Able to answer questions. Cranial nerves II through XII intact, positive slight weakness in the lower extremity but able to move all his 4 extremity the time not been able to do balancing gait exam. Assessment and plan 1 change mental status: Most likely combination of CVA/TIA, status seizure and possible reaction to medication and side effect. Psychiatry and neurology consults 2 status seizure: Patient is taking Keppra and Dilantin and Vimpat symptoms are not control need to see neurology EEG was order. Brain CAT scan did not show any abnormality. 3 severe depression and psychosis with catatonia: We'll consult psychiatry patient has been on multiple medications including BuSpar, Elavil, Remeron, clonidine and Ativan some of from his medication were changed at the time will continue to restrict some of the benzodiazepine to make sure is not a side effect medication. 4 post recent lower back surgery done at [facility] [place] stable. 5 post fall with no injury at this point continue to watch patient is balance and gait most likely affected by his medication. 6 acute kidney injury with stage III chronic kidney disease: Continue hydration repeat BUN/creatinine 24 hours. 7 history of hyperlipidemia: Remain on Lipitor and TriCor. 8 BPH: With no sign of urinary retention remain on Flomax 0.4 mg a day. 9 status of Williamson virus COVID 19: Was negative. 10 GI prophylaxis: Patient be on pantoprazole. 11 DVT prophylaxis: Patient will be on heparin subcutaneous. CODE STATUS: DO NOT RESUSCITATE. Discharge plan: Most likely return home next 24 hours Impression and plan of care have been directed as dictated by the signing physician. Natalia Ohara nurse practitioner acting as scribe for signing physician. Objective - Vital Signs Vital signs: Vital Signs Temp 97.5 F L 06/11/20 04:38 Pulse 74 06/11/20 04:38 Resp 14 06/11/20 04:38 BP 130/77 06/11/20 04:38 Pulse Ox 97 06/11/20 04:38 Intake & Output 06/10/20 06/11/20 06/11/20 18:59 06:59 18:59 Output Total 300 Balance -300 Weight 75.296 kg Output: Urine 300 Other: Voiding Method Toilet # Voids 1 - Labs CBC & Chem 7: 06/11/20 06:34 06/11/20 06:34 Labs: Abnormal Lab Results - Last 24 Hours (Table) 06/10/20 06/11/20 06/11/20 Range/Units 20:49 06:34 06:34 RBC 3.12 L (4.30-5.90) m/uL Hgb 9.9 L D (13.0-17.5) gm/dL Hct 29.9 L (39.0-53.0) % Plt Count 465 H D (150-450) k/uL Chloride 109 H (98-107) mmol/L BUN 26 H (9-20) mg/dL POC Glucose (mg/dL) 131 H (75-99) mg/dL Total Protein 5.9 L (6.3-8.2) g/dL
[2020-06-11] MEDS: LACOSAMIDE 150 MG TABLET PO SCH (15:19)
[2020-06-11 17:22] LABS: Glucose,Whole Blood 113 mg/dL (75-99)
--- NOTE | 2020-06-11 18:17 | P.CNNES ---
History of Present Illness Consult date: 06/11/20 Requesting physician: Willy Dick Reason for Consult: Mental status change History of Present Illness: Patient is a 55-year-old male, transferred from [facility] yesterday at 5 PM for neurological and psychiatric evaluation of altered mental status. Patient at present appears obviously delirious. Patient states that he has history of seizures for last 3 months, but then stated has it for last 2 years. Patient states that he had one big seizure, which he remembers when he was shaking. As per EMS flow sheet, patient was admitted to [facility] for confusion and a fall. Staff has mentioned that patient have been having episodes of full body tremors and difficulty speaking and it resolves on its own. While patient was being transferred, patient had an episode of upper body tremors with difficulty speaking, resolved on its own within 2 minutes, no changes with motor control or stroke assessment. Patient's blood pressure was 163/94, pulse rate 70, respiration 18 and saturation 98%. Patient denies any history of alcoholism, no tobacco or drug use. States he lives by himself. He claims he had history of stroke in the past, but claims he "came out of it". Does not remember if it affected any side of his body. Patient states that his legs have been giving out. He is feeling better since he is doing "deep breathing". Records from [facility] revealed patient's vitals have been stable. TIBC 328. Iron 59, ferritin 364 transfer into 47, B12 545, troponin ne gative, Hemoglobin A1c 6.2, Dilantin level 3.4 urine drug screen positive for benzodiazepine, tricyclic, barbiturates and oxycodone. UA negative Chem-7 showed BUN 41, creatinine 1.4, GFR 53. Ammonia 39 hepatic panel normal, CBC normal. Lactic acid 1.0, and INR normal CT of lumbar spine showed posterior fusion surgery. No significant spinal stenosis. No fracture. Chest x-ray was normal. CT of the cervical spine from 06/09/2020 showed MILD degenerative 2 mm spondylolisthesis at C7-T1 unchanged compared to old exam from July 2016. No fracture. CT head negative. Ventricles of normal size. No mass effect or midline shift. No intracranial hemorrhage. 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 EKG shows sinus rhythm. Patient's current blood test shows normal WBC, hemoglobin 9.9, platelets 465. S odium and potassium normal. Renal functions normal. Hepatic panel normal. His last hemoglobin A1c 6.4 on 05/14/2020. B12 903 on 05/14/2020, normal TSH. I reviewed patient's home medication list, which is extensive. Probably getting adverse effects. Review of Systems Denies problems with vision, hoarseness or throat dysphagia. Patient denies chest pain, abdominal pain, nausea vomiting diarrhea. All other review of systems unremarkable. Past Medical History Past Medical History: COPD, CVA/TIA, Diabetes Mellitus, Fibromyalgia, GERD/Reflux, Hypertension, Osteoarthritis (OA), Rheumatoid Arthritis (RA), Sleep Apnea/CPAP/BIPAP Additional Past Medical History / Comment(s): Diabetes pedis type II, hypertension, hyperlipidemia, CVA, fibromyalgia, chronic tobacco use (pt states he is no longer a smaoke) and dependence, COPD, chronic pain syndrome, seizure with status epilepticus, osteoporosis with vertebral fracture from T3 to T7 and T11, drug use and dependence. History of Any Multi-Drug Resistant Organisms: None Reported Past Surgical History: Orthopedic Surgery Additional Past Surgical History / Comment(s): rt rotator cuff x 2 Past Anesthesia/Blood Transfusion Reactions: No Reported Reaction Past Psychological History: Depression Smoking Status: Former smoker Past Alcohol Use History: Daily Past Drug Use History: Cocaine, Marijuana Additional Drug Use History / Comment(s): Pt denies any drug use - Past Family History Father Family Medical History: CVA/TIA, Diabetes Mellitus, Hypertension Mother Family Medical History: Diabetes Mellitus Brother(s) Family Medical History: No Reported History Sister(s) Family Medical History: No Reported History Medications and Allergies Home Medications Medication Instructions Recorded Confirmed Type Escitalopram [Lexapro] 5 mg PO DAILY #14 tab 09/02/15 06/10/20 Rx Phenytoin Sodium Extended 100 mg PO BID #28 cap 09/02/15 06/10/20 Rx [Dilantin] Amitriptyline HCl [Elavil] 150 mg PO HS 06/10/20 06/10/20 History Atorvastatin [Lipitor] 40 mg PO DAILY 06/10/20 06/10/20 History DULoxetine HCL [Cymbalta] 30 mg PO DAILY 06/10/20 06/10/20 History Dibucaine 1% Ointment 1 applic TOPICAL Q2H PRN 06/10/20 06/10/20 History Diclofenac Sodium/Misoprostol 1 tab PO BID 06/10/20 06/10/20 History [Diclofenac-Misoprost 75-200 Tb] Fenofibrate Nanocrystallized 145 mg PO DAILY 06/10/20 06/10/20 History [Fenofibrate] Ibuprofen [Motrin Ib] 800 mg PO TID PRN 06/10/20 06/10/20 History Lacosamide [Vimpat] 300 mg PO BID 06/10/20 06/10/20 History Methocarbamol [Robaxin] 750 mg PO TID PRN 06/10/20 06/10/20 History Mirtazapine 15 mg PO HS 06/10/20 06/10/20 History Omeprazole 20 mg PO BID 06/10/20 06/10/20 History Pregabalin [Lyrica] 75 mg PO TID 06/10/20 06/10/20 History QUEtiapine [SEROquel] 100 mg PO BID 06/10/20 06/10/20 History Tamsulosin [Flomax] 0.4 mg PO DAILY 06/10/20 06/10/20 History Tolterodine ER [Detrol LA] 2 mg PO DAILY 06/10/20 06/10/20 History busPIRone HCL 15 mg PO TID 06/10/20 06/10/20 History clonazePAM 2 mg PO HS 06/10/20 06/10/20 History levETIRAcetam [Keppra] 2,000 mg PO BID 06/10/20 06/10/20 History oxyCODONE-APAP 7.5-325MG [Percocet 1 tab PO BID PRN 06/10/20 06/10/20 History 7.5-325 mg] rOPINIRole HCL [Requip] 4 mg PO DAILY 06/10/20 06/10/20 History rOPINIRole HCL [Requip] 8 mg PO HS 06/10/20 06/10/20 History Allergies Allergy/AdvReac Type Severity Reaction Status Date / Time No Known Allergies Allergy Verified 06/10/20 18:13 Physical Examination - Vital Signs Vital Signs: Vital Signs Temp Pulse Resp BP Pulse Ox 06/11/20 04:38 97.5 F L 74 14 130/77 97 06/10/20 20:42 97.7 F 86 18 134/78 96 06/10/20 17:18 97.8 F 73 16 124/79 96 Intake and Output 06/10/20 06/11/20 06/11/20 22:59 06:59 14:59 Output Total 300 Balance -300 Output: Urine 300 Other: Voiding Method Toilet # Voids 1 1 Weight 75.296 kg On examination patient is a middle aged male, in no acute distress. He appears delirious. Attention span, concentration is diminished. Fund of knowledge is somewhat limited. Patient is easily distractible. He is fully oriented, knows it is 06/11/2020 and that he is in [facility] in [facility] and knows name of the current president. Patient sometimes rambles. Speech otherwise is clear with no aphasia or dysarthria. On cranial examination pupils are round and reactive to light, visual blanco are full on confrontation. Extraocular muscles are intact with no nystagmus. Face is sy mmetric, tongue protrudes the midline. Palatal elevation sensation normal hearing and shoulder shrug normal. On muscle strength testing there is no pronator drift and the strength is normal in arms and legs distally and proximally. Patient is tremulous for [id number] testing as well as with p osture. Reflexes are 1+ and plantars are downgoing. Sensory touch is equal. Tone and bulk of muscles normal. No parkinsonian features. Gait was deferred. There is no bruit or murmur. Peripheral pulses present. No edema. Abdomen soft nontender. Chest clear. Results - Laboratory Findings CBC and BMP: 06/11/20 06:34 06/11/20 06:34 Abnormal Lab Findings: Abnormal Labs 06/10/20 06/11/20 06/11/20 20:49 06:34 06:34 RBC 3.12 L Hgb 9.9 L D Hct 29.9 L Plt Count 465 H D Chloride 109 H BUN 26 H POC Glucose (mg/dL) 131 H Total Protein 5.9 L Assessment and Plan Assessment: * Delirium, most likely due to polypharmacy and medication side effects. Patient's vitals are stable, therefore serotonin syndrome unlikely. Plan: * Patient's medication list needs to be reevaluated and doses have to be decreased, and some medications should be discontinued. EEG also revealed moderate background slowing, consistent with toxic metabolic encephalopathy. No epileptiform activity was seen. * Psychiatry is also on board, who is addressing patient's psychoactive medi cations. Remeron, Cymbalta and Lexapro have been discontinued. * Patient is on very high-dose of Vimpat, Keppra. I will increase dose of Vimpat to 200 mg twice a day and Keppra 1500 mg twice a day, which are the recommended maximal doses of these medications. Continue same dose of Dilantin 100 mg twice a day. * We will check AARON, folate, RPR, ammonia and thiamine level. May need further evaluation for cause of anemia. * Neurology will follow.
[2020-06-11 19:56] LABS: Glucose,Whole Blood 127 mg/dL (75-99)
[2020-06-11] MEDS: LACOSAMIDE 50 MG TABLET PO SCH (19:56)
[2020-06-11] MEDS: clonazePAM 1 MG TAB PO SCH (19:56)
[2020-06-11] MEDS: MIRTAZAPINE 15 MG TAB PO SCH (19:58)
[2020-06-11] MEDS: AMITRIPTYLINE HCL 50 MG TAB PO SCH (19:58)
[2020-06-11] MEDS: oxyCODONE-APAP 7.5-325MG 1 EACH TAB PO PRN (20:00)
[2020-06-12 05:18] VITALS: BP 106/74; PULSE 88; TEMP 98.3
[2020-06-12 07:10] LABS: Glucose,Whole Blood 97 mg/dL (75-99)
[2020-06-12] MEDS: INSULIN ASPART (NovoLOG) 100 UNIT/ML VIAL SQ SCH ×2 (08:43→12:27)
[2020-06-12] MEDS: OXYBUTYNIN XL 5 MG TAB.ER.24 PO SCH (09:03)
[2020-06-12] MEDS: PHENYTOIN SODIUM EXTENDED 100 MG CAP PO SCH (09:03)
[2020-06-12] MEDS: ETODOLAC 400 MG TAB PO SCH (09:03)
[2020-06-12] MEDS: miSOPROStoL 200 MCG TAB PO SCH (09:03)
[2020-06-12] MEDS: QUEtiapine 100 MG TAB PO SCH (09:03)
[2020-06-12] MEDS: rOPINIRole HCL 4 MG TABLET PO SCH (09:04)
[2020-06-12] MEDS: ESCITALOPRAM 5 MG TAB PO SCH (09:04)
[2020-06-12] MEDS: PANTOPRAZOLE 40 MG TABLET PO SCH (09:04)
[2020-06-12] MEDS: TAMSULOSIN 0.4 MG CAP.ER.24H PO SCH (09:05)
[2020-06-12] MEDS: levETIRAcetam 500 MG TAB PO SCH (09:05)
[2020-06-12] MEDS: FENOFIBRATE 160 MG TAB PO SCH (09:05)
[2020-06-12] MEDS: ATORVASTATIN 40 MG TAB PO SCH (09:05)
[2020-06-12] MEDS: busPIRone HCl 5 MG TAB PO SCH (09:05)
[2020-06-12] MEDS: DULoxetine HCL 30 MG CAPSULE.DR PO SCH (09:05)
[2020-06-12] MEDS: PREGABALIN 75 MG CAP PO SCH (09:06)
[2020-06-12] MEDS: LACOSAMIDE 50 MG TABLET PO SCH (09:09)
[2020-06-12 10:57] LABS: Glucose,Whole Blood 158 mg/dL (75-99)
--- NOTE | 2020-06-12 11:42 | P.DS ---
Providers Date of admission: 06/10/20 17:10 Expected date of discharge: 06/12/20 Attending physician: Willy Dick Consults: 06/10/20 18:17 Consult Physician Routine Consulting Provider: Willy Negrete Consult Reason/Comments: Mental status change Do you want consulting provider notified?: Yes Placement Type Exists?: Yes 06/10/20 18:20 Consult Physician Routine Consulting Provider: Luiza Kinsey Consult Reason/Comments: Mental Status change Do you want consulting provider notified?: Yes Placement Type Exists?: Yes Primary care physician: Willy Dick [facility] Course: 54-year-old male one of Dr. Guy patient who was hospitalized at [facility] yesterday for significant altered mental status according to his significant other he fell at home when he was cleaning the floor fell down some stairs without having any major injury but he had a problem ambulating or walking he had recent history of lower back surgery on May 28 at [facility] for spinal stenosis and patient is known to have history of seizure, chronic pain syndrome along with previous history of stroke, patient seen Dr. Chaudhari neurology for pain management also has been managed with multi-medication for seizure activity. According to his significant other says he was released from the hospital after his surgery at [facility] has not back right but become a lot worse after his fall yesterday. Patient was seen and evaluated at [facility] multi-x-ray including CT of the head CD of the cervical spine and lumbar spine showed his surgical site with no injury chest x-ray was clear EKG showed no major abnormality his creatinine was mildly elevated and patient was mildly dehydrated also his Dilantin level was 3.4 subtherapeutic despite taking his medication with Dilantin and Keppra and Vimpat and patient apparently had seizure despite the treatment medication but mostly his level was down. Patient started having catatonia and he quit talking for pedis time like he is going into atypical seizure and then comes back and start talking for. This time to quit again to do the same his answers are quite bit abrupt and still have slight problem with aphasia not been able to express himself and full. After he was evaluated and admitted for one day he was transferred to [facility] for an EEG, neuro service and psych evaluation as well. 06/11: The patient is seen in follow-up today. Neurology and psychiatry evaluations today. Anticipate he will probably be ready for discharge tomorrow. Patient states that he has had ongoing sleep deprivation and only slept 2 hours last night. He isn't seizure precautions. EEG is abnormal due to background slowing suggestive generalized cerebral dysfunction seen in toxic metabolic encephalopathy or due to diffuse structural brain abnormality. 06/12: Patient has been seen by psychiatry with recommendations to discontinue Remeron, Cymbalta and Lexapro. Continue Elavil 150 mg, BuSpar 50 mg 3 times daily, Seroquel social work to provide referral to [facility]. Patient was also seen by neurology with recommendations for reevaluate and decreased dosing of his medications. He has decreased Vimpat and Keppra doses to the recommended maximal dosing. Patient to maintain Dilantin at 100 mg twice daily. AARON, methylmalonic acid, syphilis testing and thiamine level are all pending. EEG reveals generalized cerebral dysfunction seen in toxic metabolic encephalopathy or due to diffuse structural brain abnormality. No epileptiform activity was seen. Patient is seen today in his room. He is awake and alert. He feels that he is back to his baseline and feels safe to return home. rd project manager has made arrangements for [facility]. Social work consult placed for [facility] referrals. Patient will be discharged home today in stable condition. Assessment and plan 1 toxic encephalopathy secondary to polypharmacy and side effects from medications 2 status seizure 3 recurrent depression and psychosis with catatonia 4 post recent lower back surgery done at [facility]. 5 post fall with no injury 6 stage III chronic kidney disease 7 history of hyperlipidemia 8 BPH 9 COVID 19 infection not present. Discharge plan: home with [facility]. Impression and plan of care have been directed as dictated by the signing physician. Natalia Ohara nurse practitioner acting as scribe for signing physician. Patient Condition at Discharge: Good Plan - Discharge Summary Discharge Rx Participant: No New Discharge Prescriptions: New levETIRAcetam [Keppra] 1,500 mg PO Q12HR #180 tab Lacosamide [Vimpat] 200 mg PO BID 3 Days #6 tab Continue Phenytoin Sodium Extended [Dilantin] 100 mg PO BID #28 cap rOPINIRole HCL [Requip] 8 mg PO HS Tolterodine ER [Detrol LA] 2 mg PO DAILY Tamsulosin [Flomax] 0.4 mg PO DAILY Diclofenac Sodium/Misoprostol [Diclofenac-Misoprost 75-200 Tb] 1 tab PO BID rOPINIRole HCL [Requip] 4 mg PO DAILY QUEtiapine [SEROquel] 100 mg PO BID oxyCODONE-APAP 7.5-325MG [Percocet 7.5-325 mg] 1 tab PO BID PRN PRN Reason: Pain Pregabalin [Lyrica] 75 mg PO TID Omeprazole 20 mg PO BID methocarbamoL [Robaxin] 750 mg PO TID PRN PRN Reason: Muscle Spasm Dibucaine 1% Ointment 1 applic TOPICAL Q2H PRN PRN Reason: Pain Ibuprofen [Motrin Ib] 800 mg PO TID PRN PRN Reason: Pain Fenofibrate Nanocrystallized [Fenofibrate] 145 mg PO DAILY clonazePAM 2 mg PO HS busPIRone HCL 15 mg PO TID Atorvastatin [Lipitor] 40 mg PO DAILY Amitriptyline HCl [Elavil] 150 mg PO HS Discontinued Escitalopram [Lexapro] 5 mg PO DAILY #14 tab levETIRAcetam [Keppra] 2,000 mg PO BID Mirtazapine 15 mg PO HS Lacosamide [Vimpat] 300 mg PO BID DULoxetine HCL [Cymbalta] 30 mg PO DAILY Discharge Medication List Phenytoin Sodium Extended [Dilantin] 100 mg PO BID #28 cap 09/02/15 [Rx] Amitriptyline HCl [Elavil] 150 mg PO HS 06/10/20 [History] Atorvastatin [Lipitor] 40 mg PO DAILY 06/10/20 [History] Dibucaine 1% Ointment 1 applic TOPICAL Q2H PRN 06/10/20 [History] Diclofenac Sodium/Misoprostol [Diclofenac-Misoprost 75-200 Tb] 1 tab PO BID 06/10/20 [History] Fenofibrate Nanocrystallized [Fenofibrate] 145 mg PO DAILY 06/10/20 [History] Ibuprofen [Motrin Ib] 800 mg PO TID PRN 06/10/20 [History] Omeprazole 20 mg PO BID 06/10/20 [History] Pregabalin [Lyrica] 75 mg PO TID 06/10/20 [History] QUEtiapine [SEROquel] 100 mg PO BID 06/10/20 [History] Tamsulosin [Flomax] 0.4 mg PO DAILY 06/10/20 [History] Tolterodine ER [Detrol LA] 2 mg PO DAILY 06/10/20 [History] busPIRone HCL 15 mg PO TID 06/10/20 [History] clonazePAM 2 mg PO HS 06/10/20 [History] methocarbamoL [Robaxin] 750 mg PO TID PRN 06/10/20 [History] oxyCODONE-APAP 7.5-325MG [Percocet 7.5-325 mg] 1 tab PO BID PRN 06/10/20 [History] rOPINIRole HCL [Requip] 4 mg PO DAILY 06/10/20 [History] rOPINIRole HCL [Requip] 8 mg PO HS 06/10/20 [History] Lacosamide [Vimpat] 200 mg PO BID 3 Days #6 tab 06/12/20 [Rx] levETIRAcetam [Keppra] 1,500 mg PO Q12HR #180 tab 06/12/20 [Rx] Follow up Appointment(s)/Referral(s): Fay Deluca MD [STAFF PHYSICIAN] - 06/18/20 10:45 am Dmitry Chaudhari MD [STAFF PHYSICIAN] - 06/19/20 1:40 pm Patient Instructions/Handouts: Levetiracetam (By mouth), Lacosamide (By mouth), Psychotic Disorder (DC) Activity/Diet/Wound Care/Special Instructions: pt was set up with [facility] - Discharge Disposition: HOME WITH HOME HEALTH SERVICES
== END 2020-06-12 13:52 | disposition home health service (06) ==
LOC: INTOOBSV 17:10 → 5NMEDONC 17:10 → UNDODISIN 06-12 13:52
PROVIDERS: ADMIT Internal Medicine Geriatric Medicine; ATTEND Internal Medicine Geriatric Medicine
DX: G92 Toxic encephalopathy (principal); F33.3 Major depressive disorder, recurrent, severe with psychotic symptoms; N17.9 Acute kidney failure, unspecified; E78.5 Hyperlipidemia, unspecified; N40.0 Benign prostatic hyperplasia without lower urinary tract symptoms; F05 Delirium due to known physiological condition; Z11.59 Encounter for screening for other viral diseases; Z72.820 Sleep deprivation; G89.4 Chronic pain syndrome; J44.9 Chronic obstructive pulmonary disease, unspecified; K21.9 Gastro-esophageal reflux disease without esophagitis; M19.90 Unspecified osteoarthritis, unspecified site; M06.9 Rheumatoid arthritis, unspecified; M79.7 Fibromyalgia; E11.22 Type 2 diabetes mellitus with diabetic chronic kidney disease; I12.9 Hypertensive chronic kidney disease with stage 1 through stage 4 chronic kidney disease, or unspecified chronic kidney disease; N18.3 Chronic kidney disease, stage 3 (moderate); Z86.73 Personal history of transient ischemic attack (TIA), and cerebral infarction without residual deficits; Z87.891 Personal history of nicotine dependence; Z79.899 Other long term (current) drug therapy; Z98.890 Other specified postprocedural states; Y92.009 Unspecified place in unspecified non-institutional (private) residence as the place of occurrence of the external cause; W19.XXXA Unspecified fall, initial encounter; E66.9 Obesity, unspecified; Z68.26 Body mass index [BMI] 26.0-26.9, adult; G40.901 Epilepsy, unspecified, not intractable, with status epilepticus; M81.0 Age-related osteoporosis without current pathological fracture; T50.905A Adverse effect of unspecified drugs, medicaments and biological substances, initial encounter; G47.33 Obstructive sleep apnea (adult) (pediatric); Z99.89 Dependence on other enabling machines and devices; Z79.1 Long term (current) use of non-steroidal anti-inflammatories (NSAID); Z79.891 Long term (current) use of opiate analgesic; Z81.8 Family history of other mental and behavioral disorders; Z83.3 Family history of diabetes mellitus; Z82.49 Family history of ischemic heart disease and other diseases of the circulatory system; Z82.3 Family history of stroke; Z66 Do not resuscitate
CPT/HCPCS: 95816; 97161; 97166; 83921; 84425; 80053; 82140; 85025; 86780; 86038; G0378 ×2; G0379; S0191 ×3

== ENCOUNTER → 2020-09-11 | Outpatient (CLI) | payer MEDICARE ==
[2020-09-11 10:48] LABS: Anisocytosis Slight; Basophils % (A) 0 %; Eosinophils # (A) 0.3 k/uL (0-0.7); Eosinophils % (A) 2 %; HCT 29.1 % (39.0-53.0); HGB 8.7 gm/dL (13.0-17.5); Hypochromasia Moderate; Lymphocytes # (A) 1.5 k/uL (1.0-4.8); Lymphocytes % (A) 11 %; MCH 27.4 pg (25.0-35.0); MCV 91.6 fL (80.0-100.0); Mean Platelet Volume 10.5; Monocytes # (A) 0.4 k/uL (0-1.0); Monocytes % (A) 3 %; Neutrophils # (A) 12.1 k/uL (1.3-7.7); Neutrophils % (A) 83 %; Platelet Count 691 k/uL (150-450); RBC 3.18 m/uL (4.30-5.90); RDW 16.6 % (11.5-15.5); WBC 14.5 k/uL (3.8-10.6)
[2020-09-11 11:06] LABS: Large Platelets Present; Target Cells Present
[2020-09-11 15:48] LABS: T4, Free (Free Thyroxine) 0.8 ng/dL (0.80-1.80)
[2020-09-11 16:04] LABS: African American GFR (CKD) 48.7 (60.0-200.0); Albumin/Globulin Ratio 1.74 (1.60-3.17); Anion Gap 7.3 mmol/L (4.00-12.00); BUN/Creat Ratio 18.89 Ratio (12.00-20.00); Carbon Dioxide 22.7 mmol/L (21.6-31.8); Chol/HDL Ratio 5.92; Globulin 2.3 g/dL (1.6-3.3); Potassium 5.3 mmol/L (3.5-5.5); Total Bilirubin 0.2 mg/dL (0.3-1.2); Total Protein 6.3 g/dL (6.2-8.2)
== END | disposition home or self-care (01) ==
LOC: LABWHC1 09:36
PROVIDERS: ATTEND Family Medicine
DX: E78.5 Hyperlipidemia, unspecified (principal); R41.82 Altered mental status, unspecified; R09.1 Pleurisy
CPT/HCPCS: 36415; 80053; 80061; 82140; 82550; 84145; 84439; 84443; 85025; 87040